=== PATIENT | female | born 1965 | race Caucasian/White ===

== ENCOUNTER 2018-08-19 15:03 | Inpatient (IN) | payer OTHER ==
[~2018-08-19] VITALS: Ht 160 cm; Wt 46.7 kg
--- NOTE | ~2018-08-19 | WRIGHTHP ---
[place], [place] PATIENT HISTORY AND PHYSICAL EXAM [id number] #: [id number] ROOM: 529 DOCTOR: LAMIN GOODMAN MD BIRTHDATE: [birth year] DOS: 08/19/2018 HISTORY OF PRESENT ILLNESS: The patient is a 52-year-old female with a past medical history of: 1. Chronic obstructive pulmonary disease. 2. Nicotine smoke dependence. The patient presented to the Emergency Department with complaints of increasing shortness of breath for about 10 days, wheezing, cough and sputum. The patient was evaluated in the Emergency Department and was found to be hypoxemic and started on oxygen and recommended for admission and further management. The patient has slight difficulty with breathing at admission. No chest pain, no dizziness or fainting episodes. No other GI or urinary symptoms. The patient was given IV Solu-Medrol and DuoNebs in the Emergency Department along with ceftriaxone. No chest pains. No dizziness or fainting episode. No GI or urinary symptoms. REVIEW OF SYSTEMS: RESPIRATORY: Increased in shortness of breath, cough and wheezing. GASTROINTESTINAL: No nausea, vomiting, diarrhea, constipation. CARDIOVASCULAR SYSTEM: No chest pains or palpitations. FAMILY HISTORY: Noncontributory. HOME MEDICATIONS: None. ALLERGIES: No known drug allergies. PHYSICAL EXAMINATION: GENERAL: Alert and oriented x 3, in mild respiratory discomfort, otherwise in no distress. VITAL SIGNS: Blood pressure 145/93, heart rate of 120 beats per minute, breathing 22-30 times per minute and temperature of 99.8 degrees Fahrenheit. HEENT AND NECK: Extraocular movements are intact. Sclerae are anicteric. Oral mucosa is moist and clean. No obvious facial weakness. Neck is supple without any lymphadenopathy. No thyromegaly. No JVD. No carotid arterial bruits. LUNGS: Decreased breath sounds with expiratory wheezing all over. CARDIOVASCULAR SYSTEM: Heart rate is regular in rate and rhythm. S1 and S2 normally audible. No significant murmur or any other abnormal cardiac sounds. ABDOMEN: Soft, nontender. No obvious organomegaly. Bowel sounds are present. No obvious herniation. EXTREMITIES: Without significant cyanosis or edema. Warm to touch. CENTRAL NERVOUS SYSTEM: Alert and oriented x 3. Cranial nerves II-XII are intact. Speech is normal. The patient is able to move all extremities. Normal muscle strength. Deep tendon reflexes are equal on both sides. Plantars were downgoing. LABORATORY DATA: Normal serum electrolytes. White cell count of 12,000, hemoglobin 16.5 and normal platelets. [place], [place] PATIENT HISTORY AND PHYSICAL EXAM NAME: SHANITA PATEL UNIT #: [id number] ROOM: 529 DOCTOR: MAXINE MELO,LAMIN Acevedo BIRTHDATE: [birth year] IMPRESSION AND PLAN: 1. The patient has acute exacerbation of chronic obstructive pulmonary disease with continued nicotine smoke dependence, to be treated on a clearing supervisor, oxygen, nebulizer treatments with DuoNebs, corticosteroids and antibiotics and followed closely. I will get a sputum culture. 2. Nicotine smoke dependence. The patient encouraged to stop smoking cigarettes and she says she stopped a few days earlier. LAMIN GOODMAN MD CM:HISPHYS:PATIENT HISTORY AND PHYSICAL EXAMINATION 16 [phone] LAMIN GOODMAN MD 08/19/18 183 interface
--- NOTE | ~2018-08-19 | EKG ---
[place], [place] ELECTROCARDIOGRAM REPORT NAME: SHANITA PATEL UNIT #: [id number] ROOM: 529 DOCTOR: HAILY DRAFT REPORT BIRTHDATE: [birth year] [facility] Test Date: 2018-08-19 Test Time: 15:40:02 Pat Name: SHANITA PATEL Department: Room: 529 Gender: F Clamper: Eleanor Morocho : 1965 Requested By: HEIDI GARCIA Order Number: [id number] Reading MD: Andrea Strickland MD Measurements Intervals [place] Rate: 133 P: 86 DE: 136 QRS: -20 QRSD: 80 T: 76 QT: 304 QTc: 453 Interpretive Statements Sinus tachycardia LAE, consider biatrial enlargement Borderline left axis deviation No previous ECG available for comparison Electronically Signed On 08-19-2018 18:50:17 PDT by Andrea Strickland MD CM:EKGRPT:ELECTROCARDIOGRAM REPORT [id number] HEIDI JOHANSEN DRAFT REPORT HEIDI GARCIA M.D.
--- NOTE | ~2018-08-19 | DS ---
[place], [place] DISCHARGE SUMMARY NAME: SHANITA PATEL UNIT #: [id number] ROOM: 529 DOCTOR: LAMIN GOODMAN MD BIRTHDATE: [birth year] DOS: 08/22/2018 DISCHARGE DIAGNOSES: 1. Acute exacerbation of chronic obstructive pulmonary disease with acute over chronic respiratory failure. 2. Nicotine smoke dependence. HOSPITAL COURSE: The patient presented to the Emergency Department at [facility] with increasing shortness of breath, wheezing, cough and she was found to be in acute over chronic respiratory failure with significant wheezing and the patient was using accessory muscles of respiration. The patient admitted to a monitored bed and treated with DuoNebs, IV Solu-Medrol, IV antibiotics and her breathing improved slowly. The patient's wheezing has almost resolved. She still has slight wheezing left. The patient's pulse ox is staying good and tachycardia has resolved and she will be discharged to home on nebulizer treatments, tapering down dose of prednisone and she will see me back on Saturday. Nicotine smoke dependence. The patient is encouraged to stop smoking cigarettes and I will give her nicotine patch at home. LABORATORY DATA: Chest x-ray without acute abnormality. Normal serum electrolytes. Sputum cultures grew normal ruslan. White cell count 12,000 and hemoglobin 16.5. DISCHARGE MANAGEMENT: Augmentin for 1 week, DuoNeb every 4 hours as needed, tapering down dose of Medrol Dosepak and see me in the office on Saturday. LAMIN GOODMAN MD CM:SY [id number] LAMIN GOODMAN MD 08/22/18 1028 interface
--- NOTE | ~2018-08-19 | PR ---
[place], [place] PROGRESS NOTE NAME: SHANITA PATEL UNIT #: [id number] ROOM: 529 DOCTOR: LAMIN GOODMAN MD BIRTHDATE: [birth year] DOS: 08/20/2018 SUBJECTIVE: The patient is starting to breathe better. Heart rate has improved. OBJECTIVE: GENERAL APPEARANCE: The patient is alert and oriented x 3, in no visible distress. VITAL SIGNS: Blood pressure 118/70, heart rate 84 beats per minute, breathing 18-20 times per minute, afebrile. HEENT AND NECK: Exam within normal limits. CARDIOVASCULAR SYSTEM: Heart rate is regular in rate and rhythm. S1 and S2 normally audible. LUNGS: Expiratory wheezing on lung auscultation. ABDOMEN: Soft, nontender. No obvious organomegaly. Bowel sounds are present. EXTREMITIES: Without significant cyanosis or edema. IMPRESSION AND PLAN: 1. Acute exacerbation of severe underlying chronic obstructive pulmonary disease with wheezing, cough and sputum, is all improving with treatment. The patient is on corticosteroids, DuoNebs, antibiotics and oxygen. 2. Nicotine smoke dependence. The patient has stopped and she plans to stay off. The patient has been encouraged to completely stop smoking cigarettes. LAMIN GOODMAN MD CM:PNTRANS [id number] LAMIN GOODMAN MD 08/20/18 1529 interface
[2018-08-19 15:04] VITALS: BP 156/80
[2018-08-19 15:16] VITALS: BP 168/99
[2018-08-19 15:30] LABS: BASO % 0.3 % (0.0-1.0); EOS % 0.2 % (1.0-4.0); HEMATOCRIT 48.4 % (37.0-47.0); HEMOGLOBIN 16.5 g/dl (12.0-16.0); LYMPH # 1.2 10*3/uL (1.3-4.4); MEAN CELL VOLUME 92.9 fl (81.0-99.0); MEAN CORPUSCULAR HGB 31.7 pg (27.0-31.0); MEAN CORPUSCULAR HGB CONC 34.1 g/dl (33.0-37.0); MEAN PLATELET VOLUME 10.2 fl (9.6-12.3); MONO # 1.2 10*3/uL (0.1-1.0); MONO % 10.4 % (3.0-9.0); NEUT # 9.5 10*3/uL (2.3-7.9); NEUT % 78.8 % (47.0-73.0); PLATELET COUNT AUTOMATED 233 10*3/uL (130-400); RED BLOOD COUNT 5.21 10*6/uL (4.10-5.10); RED CELL DISTRI WIDTH 12.6 % (0-14.5)
[2018-08-19 15:45] LABS: ALBUMIN 3.2 gm/dl (3.1-4.5); ALKALINE PHOSPHATASE 101 U/L (45-117); BUN 2 mg/dl (7-24); CHLORIDE 96 mmol/L (98-107); CREATININE 0.58 mg/dL (0.55-1.02); POTASSIUM 4.1 mmol/L (3.5-5.1); SGOT/AST 11 IU/L (3-35); SGPT/ALT 12 U/L (12-78); SODIUM 135 mmol/L (136-145); TOTAL PROTEIN 7.9 gm/dL (6.4-8.2)
[2018-08-19 16:21] VITALS: BP 132/82
[2018-08-19 17:32] VITALS: BP 145/93
[2018-08-19 18:00] VITALS: BP 145/93
[2018-08-20] VITALS: BP 122/67
[2018-08-20 08:00] VITALS: BP 118/70
[2018-08-20 12:00] VITALS: BP 131/78
[2018-08-20 16:00] VITALS: BP 122/81
[2018-08-20 20:00] VITALS: BP 158/80
[2018-08-21] VITALS: BP 116/87
[2018-08-21 08:00] VITALS: BP 104/68; BP 114/76
[2018-08-21 12:00] VITALS: BP 140/85
[2018-08-21 16:00] VITALS: BP 160/84
[2018-08-21 20:00] VITALS: BP 152/83
[2018-08-22] VITALS: BP 127/67
[2018-08-22 08:05] VITALS: BP 124/64
[2018-08-22] MEDS ORDERED: NEBULIZER (09:23)
[2018-08-22] MEDS ORDERED: Ipratropium Brom3 ML NEB (09:23)
[2018-08-22] MEDS ORDERED: MEDROL DOSEPAK4 MG PO (09:24)
[2018-08-22] MEDS ORDERED: AUGMENTIN 875-875 MG PO (09:29)
== END 2018-08-22 12:03 | disposition home or self-care (01) | DRG 190 ==
LOC: ED 15:03 → 5E 16:32 → EDHOLD 16:32 → 5E 16:47
PROVIDERS: Emergency Medicine
DX: J44.1 Chronic obstructive pulmonary disease with (acute) exacerbation (principal); J96.20 Acute and chronic respiratory failure, unspecified whether with hypoxia or hypercapnia; F17.210 Nicotine dependence, cigarettes, uncomplicated; Z71.6 Tobacco abuse counseling

== ENCOUNTER → 2022-10-02 | Outpatient (CLI) | payer OTHER ==
[~2022-10-02] MED LIST: AUGMENTIN 875-875 MG PO; Ipratropium Brom3 ML NEB; MEDROL DOSEPAK4 MG PO; NEBULIZER
[2022-10-02 13:57] LABS: BASO # 0.1 10*3/uL (0.0-0.1); BASO % 0.8 % (0.0-1.0); EOS % 0.3 % (1.0-4.0); HEMATOCRIT 51.3 % (37.0-47.0); LYMPH # 1.9 10*3/uL (1.3-4.4); LYMPH % 19.9 % (27.0-41.0); MEAN CELL VOLUME 92.1 fl (81.0-99.0); MEAN CORPUSCULAR HGB 31.6 pg (27.0-31.0); MEAN CORPUSCULAR HGB CONC 34.3 g/dl (33.0-37.0); MEAN PLATELET VOLUME 10.6 fl (9.6-12.3); MONO # 0.7 10*3/uL (0.1-1.0); MONO % 7.2 % (3.0-9.0); NEUT # 6.9 10*3/uL (2.3-7.9); NEUT % 71.3 % (47.0-73.0); PLATELET COUNT AUTOMATED 164 10*3/uL (130-400); RED BLOOD COUNT 5.57 10*6/uL (4.10-5.10); RED CELL DISTRI WIDTH 13.4 % (0-14.5); WHITE BLOOD COUNT 9.6 10*3/uL (4.8-10.8)
[2022-10-02 14:33] LABS: FREE T4 0.97 ng/dl (0.76-1.46); THYROID STIM HORMONE (HS) 1.85 uIU/ml (0.358-4.75)
== END ==
LOC: LAB 13:03
PROVIDERS: ATTEND Nurse Practitioner Family
DX: J43.9 Emphysema, unspecified (principal)

== ENCOUNTER → 2024-04-22 | Outpatient (CLI) | payer OTHER ==
[~2024-04-22] MED LIST changes: +ATORVASTATIN CA20 M1 PO; +BENZONATATE100 M1 PO; +BREZTRI AEROS10.7 GM IH; +CETIRIZINE10 MG PO; +EFFER-K10 MEQ PO; +FUROSEMIDE20 M1 PO; +Ipratropium Brom3 ML INH; +METOPROLOL SUCC50 M1 PO; +MUCUS RELIEF600 MG PO; +Motrin,Rufen800 MG PO; +PREDNISONE10 MG PO; +SINGULAIR10 M1 PO; +TOPROL XL25 MG PO; +TOPROL XL50 M1 PO; +VIBRA-TAB100 MG PO; +VITAMIN C500 M4 PO; +ZITHROMAX250 MG PO
[2024-04-22 14:16] LABS: HEMATOCRIT 42.8 % (37.0-47.0); MEAN CELL VOLUME 91.1 fl (81.0-99.0); MEAN CORPUSCULAR HGB 29.8 pg (27.0-31.0); MEAN CORPUSCULAR HGB CONC 32.7 g/dl (33.0-37.0); MEAN PLATELET VOLUME 9.4 fl (9.6-12.3); PLATELET COUNT AUTOMATED 347 10*3/uL (130-400); RED CELL DISTRI WIDTH 13.4 % (0-14.5)
[2024-04-22 14:20] LABS: MANUAL DIFF REFLEX YES
[2024-04-22 14:46] LABS: ALKALINE PHOSPHATASE 84 U/L (46-116); BUN 13 mg/dl (9-23); CHLORIDE 97 mmol/L (98-107); CHOLESTEROL 252 mg/dL (<200); FREE T4 1.15 ng/dl (0.89-1.76); LDL CHOLESTEROL 108 mg/dL (9-159); SGPT/ALT 19 U/L (5-49); TOTAL PROTEIN 6.6 gm/dL (6.0-8.0); TRIGLYCERIDES 79 mg/dl (<150)
[2024-04-22 14:53] LABS: PLATELET SUFFICIENCY NORMAL (NORMAL); TOTAL CELLS COUNTED 100 #CELLS
[2024-04-22 14:54] LABS: ROULEAUX SLIGHT
== END | disposition home or self-care (01) ==
LOC: LAB 14:02
PROVIDERS: ATTEND Nurse Practitioner Family
DX: Z00.01 Encounter for general adult medical examination with abnormal findings (principal)

== ENCOUNTER → 2025-04-26 | Outpatient (CLI) | payer OTHER ==
[2025-04-26 11:35] LABS: BASO # 0.1 10*3/uL (0.0-0.1); BASO % 0.6 % (0.0-1.0); EOS # 0.2 10*3/uL (0.0-0.4); EOS % 1.8 % (1.0-4.0); HEMATOCRIT 38.9 % (37.0-47.0); MEAN CELL VOLUME 86.6 fl (81.0-99.0); MEAN CORPUSCULAR HGB 26.9 pg (27.0-31.0); MEAN CORPUSCULAR HGB CONC 31.1 g/dl (33.0-37.0); MEAN PLATELET VOLUME 10.2 fl (9.6-12.3); MONO # 0.6 10*3/uL (0.1-1.0); MONO % 6.2 % (3.0-9.0); NEUT # 5.8 10*3/uL (2.3-7.9); NEUT % 64.9 % (47.0-73.0); PLATELET COUNT AUTOMATED 244 10*3/uL (130-400); RED BLOOD COUNT 4.49 10*6/uL (4.10-5.10); RED CELL DISTRI WIDTH 13.3 % (0-14.5); WHITE BLOOD COUNT 8.9 10*3/uL (4.8-10.8)
[2025-04-26 12:06] LABS: ALKALINE PHOSPHATASE 144 U/L (46-116); BUN 17 mg/dl (9-23); CHLORIDE 99 mmol/L (98-107); CHOLESTEROL 203 mg/dL (<200); FREE T4 1.12 ng/dl (0.89-1.76); LDL CHOLESTEROL 98 mg/dL (9-159); POTASSIUM 3.4 mmol/L (3.4-5.1); SGPT/ALT 13 U/L (5-49); TOTAL PROTEIN 7.2 gm/dL (6.0-8.0); TRIGLYCERIDES 93 mg/dl (<150)
[2025-04-28 13:07] LABS: TESTOS, FREE <0.2 pg/mL (0.0-4.2)
== END | disposition home or self-care (01) ==
LOC: LAB 10:16
PROVIDERS: ATTEND Nurse Practitioner Family
DX: M25.512 Pain in left shoulder (principal); R63.5 Abnormal weight gain